=== PATIENT | male | born 1980 | race Caucasian/White ===

== ENCOUNTER 2017-12-27 03:30 | Emergency (ER) | payer SELFPAY ==
[2017-12-27] MEDS ORDERED: LIDOCAINE 1%-EPI 1:100000 20 ML MDV SUBQ STA (03:38)
[2017-12-27] MEDS ORDERED: BACITRACIN OINT TOP STA (04:04)
--- NOTE | 2017-12-27 04:06 | ED Physician Documentation ---
PD HPI HEAD INJURY - Stated complaint Stated Complaint: NOSE LACERATION - Chief complaint Chief Complaint: Laceration - History obtained from History obtained from: Patient - History of Present Illness Mechanism of head injury: Laceration Where head injury occurred: Home Timing - onset: How many hours ago (5) Location of injury: Front Quality of pain: Pain Associated symptoms: No: LOC, AMS, Neck pain Similar symptoms before: Has not had sx before Recently seen: Not recently seen - Additional information Additional information: Patient is a 37 year old male with no significant past medical history who is presenting to the emergency department for head laceration. patient was working in his shop when he hit his head causing a laceration. patient denied any loc, change in vision nausea or vomiting. patient states that he thought it might heal on its own but every time he raised his eyebrows the laceration would open up. Review of Systems Constitutional: reports: Reviewed and negative Eyes: denies: Loss of vision, Decreased vision Ears: denies: Drainage/discharge Nose: denies: Epistaxis Throat: reports: Reviewed and negative Cardiac: reports: Reviewed and negative Respiratory: reports: Reviewed and negative GI: denies: Nausea, Vomiting : reports: Reviewed and negative Skin: reports: Laceration (s) Musculoskeletal: denies: Neck pain, Back pain, Extremity pain Neurologic: reports: Head injury. denies: Generalized weakness, Syncope, Headache, LOC Immunocompromised: denies: Immunocompromised PD PAST MEDICAL HISTORY - Past Medical History Past Medical History: No Cardiovascular: None Respiratory: None Neuro: None Endocrine/Autoimmune: None GI: None : None HEENT: None Psych: None Musculoskeletal: None Derm: None - Past Surgical History Past Surgical History: No - Allergies Allergies/Adverse Reactions: Allergies Allergy/AdvReac Type Severity Reaction Status Date / Time No Known Drug Allergies Allergy Verified 12/27/17 03:39 - Social History Does the pt smoke?: No Smoking Status: Never smoker Does the pt drink ETOH?: Yes ETOH Use: Beer Does the pt have substance abuse?: No - Immunizations Immunizations are current?: Yes - POLST Patient has POLST: No PD ED PE NORMAL - Vitals Vital signs reviewed: Yes - General General: Alert and oriented X 3, No acute distress - HEENT HEENT: PERRL, Moist mucous membranes - Neck Neck: Supple, no meningeal sign - Cardiac Cardiac: RRR - Respiratory Respiratory: No respiratory distress - Abdomen Abdomen: Non distended - Neuro Neuro: Alert and oriented X 3, patient service representative 2-12 intact, No motor deficit, No sensory deficit, Normal speech Eye Opening: Spontaneous Motor: Obeys Commands Verbal: Oriented GCS Score: 15 PD ED PE EXPANDED - HEENT HEENT: Head injury (2cm stellate laceration) - Derm Derm: Laceration(s) Results - Vitals Vitals: Vital Signs - 24 hr 12/27/17 12/27/17 03:37 04:14 Temperature 36.6 C Heart Rate 90 87 Respiratory 17 14 Rate Blood Pressure 126/81 H 120/84 H O2 Saturation 97 95 Oxygen O2 Source Room air Procedures - Laceration (location) forehead Length in cm: 2 Wound type: Stellate Neurovascular status: Sensory intact, Vascular intact Wound Preparation: Chlorhexadine, Hibiclens Skin layer closure: Prolene, Size #-0 - enter number (6), Sutures - enter # (4) Other: Patient tolerated well, No complications, Neurovascular intact, Dressing applied, Tetanus UTD Complexity: Simple PD MEDICAL DECISION MAKING - ED course Complexity details: reviewed old records, reviewed results, re-evaluated patient , considered differential, d/w patient, d/w family ED course: Patient was seen and examined at bedside. Patient's wound was repaired as described above. patient stated that he did not want any anesthetic. Patient tolerated the sutures well and had no signs of cerebral injury. patient was stable for discharge with outpatient follow up. Departure - Departure Disposition: 01 Home, Self Care Clinical Impression: Laceration Condition: Good Instructions: ED Laceration Facial Sutr Tape Follow-Up: Juan Diego Whelan MD [Primary Care Provider] - Within 1 week Comments: keep your wound clean and dry. You should monitor for signs of infection. You can take motrin or tylenol as needed for pain. You should follow up with your doctor in 5 days for suture removal. You may return to the emergency department at any time for new, worsening or uncontrollable symptoms. Discharge Date/Time: 12/27/17 04:22
[2017-12-27 04:16] VITALS: BP 120/84
== END 2017-12-27 04:22 | disposition home or self-care (01) ==
LOC: ED 03:30
DX: S01.81XA Laceration without foreign body of other part of head, initial encounter (principal); W22.09XA Striking against other stationary object, initial encounter; Y92.019 Unspecified place in single-family (private) house as the place of occurrence of the external cause
CPT/HCPCS: 12001; 99282; 99283; A9270

== ENCOUNTER 2020-09-19 21:07 | Emergency (ER) | payer OTHER ==
--- NOTE | 2020-09-19 21:29 | ED Physician Documentation ---
History of Present Illness - Stated complaint Stated Complaint: LT ANKLE INJURY - Chief complaint Chief Complaint: Trauma Ext - Additonal information Additional information: 39-year-old male presents to the emergency department for evaluation of acute left ankle swelling and pain. He reports trying to move a air compressor onto his trailer and the air compressor slipped. Though it did not fall directly on the ankle it did cause a inversion injury of the ankle. He did complete his tasks at home and was able to bear partial weight but has fairly significant swelling therefore he presents for further evaluation. He has no history of previous ankle injury in the past. Review of Systems Constitutional: reports: Reviewed and negative Eyes: reports: Reviewed and negative Ears: reports: Reviewed and negative Nose: reports: Reviewed and negative Throat: reports: Reviewed and negative Cardiac: reports: Reviewed and negative Respiratory: reports: Reviewed and negative GI: reports: Reviewed and negative : reports: Reviewed and negative Skin: reports: Reviewed and negative Musculoskeletal: reports: Joint pain (left ankle), Joint swelling, Pain with weight bearing (left ankle) Neurologic: reports: Reviewed and negative PD PAST MEDICAL HISTORY - Past Medical History Past Medical History: Yes Cardiovascular: None Respiratory: None Endocrine/Autoimmune: None GI: None : None HEENT: None Psych: None Musculoskeletal: None Derm: None - Past Surgical History Past Surgical History: No - Present Medications Home Medications: Ambulatory Orders Medication Instructions Recorded Confirmed Ibuprofen [Motrin] 600 mg PO Q6H PRN #30 tab 09/19/20 - Allergies Allergies/Adverse Reactions: Allergies Allergy/AdvReac Type Severity Reaction Status Date / Time Sulfa (Sulfonamide AdvReac Unknown Verified 09/19/20 21:19 Antibiotics) - Social History Does the pt smoke?: No Smoking Status: Never smoker Does the pt drink ETOH?: Yes Does the pt have substance abuse?: No - Immunizations Immunizations are current?: Yes - POLST Patient has POLST: No PD ED PE EXPANDED - Extremities Extremities: Left ankle (Significant swelling and ecchymosis left medial malleolus. Also swelling and tenderness of the lateral mall normal flexion and extension of the ankle against pressure though painful. Intact Achilles. No pain at the base of the fifth metatarsal. 2+ DP pulse) Results - Vitals Vitals: Vital Signs - 24 hr 09/19/20 09/19/20 21:16 21:22 Temperature 36.5 C 36.5 C Heart Rate 83 83 Respiratory 18 18 Rate Blood Pressure 145/107 H 145/107 H O2 Saturation 98 98 Oxygen O2 Source Room air - Rads (name of study) left ankle Radiology: Final report received (No evidence of acute bony abnormality the left ankle. There are multiple calcified probable intra-articular bodies noted.) PD MEDICAL DECISION MAKING - ED course Complexity details: reviewed results, re-evaluated patient, considered differential, d/w patient, d/w family ED course: 39-year-old male presents to the emergency department for evaluation of acute left ankle pain and swelling when a an 80 pound air compressor slid off the tailgate causing an inversion injury of his ankle. He has both medial and lateral malleoli are swelling. Initially after the injury he was walking around bearing full weight but given the amount of swelling he decided to seek further evaluation. X-ray does not show any acute bony abnormalities. It does indicate multiple calcified probable intra-articular bodies that are seen. I discussed this finding with the patient and he states that last year he thinks he may have sprained or injured the ankle. This gentleman was given an Miah wrap and Aircast plus crutches. I recommend ibuprofen and icing. Though he is able to bear full weight given the amount of swelling I felt that nonweightbearing for a day or 2 would be indicated. Emergent return precautions discussed Departure - Departure Disposition: 01 Home, Self Care Clinical Impression: Moderate left ankle sprain Qualifiers: Encounter type: initial encounter Qualified Code(s): S93.402A - Sprain of unspecified ligament of left ankle, initial encounter Ankle contusion Qualifiers: Encounter type: initial encounter Laterality: left Qualified Code(s): S90.02XA - Contusion of left ankle, initial encounter Condition: Stable Record reviewed to determine appropriate education?: Yes Instructions: ED Sprain Ankle W X Ray, ED Contusion Foot Prescriptions: Ibuprofen [Motrin] 600 mg PO Q6H PRN #30 tab PRN Reason: Pain Comments: The x-ray of your ankle does not show any broken bones today. It is most likely that you have sprained and contused or bruised this ankle. Please use the Miah wrap when out of bed for the next week and use the crutches for the next day or 2 to help keep pressure and weight off the foot. I also recommend that you ice the ankle for 10 minutes 3 times a day. If pain and swelling is not markedly improved over the next 7 to 10 days repeating x-ray images is warranted. I have prescribed ibuprofen to help with pain. Please take with food it may cause some stomach upset
[2020-09-19] MEDS ORDERED: HYDROcod/ACETAM 5/325 MG TABLET PO STA (21:43)
[2020-09-19] MEDS ORDERED: IBUPROFEN 600 MG TABLET PO STA (21:43)
--- NOTE | 2020-09-19 21:50 | XRAY Report ---
PROCEDURE: Ankle 3 View LT INDICATIONS: r/o fx TECHNIQUE: 3 views of the ankle were acquired. COMPARISON: None FINDINGS: Bones: No fractures or dislocations. Ankle mortise is normally aligned. No suspicious bony lesions . Soft tissues: No tibiotalar joint effusion. Achilles tendon appears normal. Multiple probable calci fied intra-articular bodies. IMPRESSION: 1. No evidence acute bony abnormality of the left ankle. 2. There are multiple calcified probable intra-articular bodies noted. Reviewed by: Terrence Calvillo MD on 09/19/2020 9:49 PM PDT Approved by: Terrence Calvillo MD on 09/19/2020 9:49 PM PDT Station ID: [id number]
[2020-09-19 22:14] VITALS: BP 140/88
== END 2020-09-19 22:13 | disposition home or self-care (01) ==
LOC: ED 21:07
DX: S93.402A Sprain of unspecified ligament of left ankle, initial encounter (principal); W22.8XXA Striking against or struck by other objects, initial encounter; X50.0XXA Overexertion from strenuous movement or load, initial encounter
CPT/HCPCS: 73610; 99281; 99283; A9270

== ENCOUNTER 2020-09-26 15:46 | Outpatient (CLI) | payer OTHER ==
--- NOTE | 2020-09-26 16:54 | XRAY Report ---
PROCEDURE: Ankle 3 View LT INDICATIONS: SPRAIN OF LEFT ANKLE TECHNIQUE: 3 views of the ankle were acquired. COMPARISON: 09/19/2020. FINDINGS: Bones: No fractures or dislocations. Ankle mortise is normally aligned. Tibiotalar joint osteoarthr itis. Soft tissues: No tibiotalar joint effusion. Achilles tendon appears normal. Numerous ossifications project posterior to the tibiotalar joint and a single ossification is anterior tibiotalar joint may represent intra-articular ossified loose bodies. IMPRESSION: No acute fracture. No acute osseous lesion. If there is continued clinical concern for pathology, the n repeat plain film radiographs (7-10 days) or advanced imaging (CT, MR, bone scan) should be conside red for further evaluation. Reviewed by: Naida Ngo MD, PhD on 09/26/2020 4:52 PM PST Approved by: Naida Ngo MD, PhD on 09/26/2020 4:52 PM PST Station ID: [id number]
== END 2020-09-26 15:47 | disposition home or self-care (01) ==
LOC: DI.S 15:46
PROVIDERS: ATTEND Nurse Practitioner Family
DX: S93.402A Sprain of unspecified ligament of left ankle, initial encounter (principal)

== ENCOUNTER 2020-09-30 23:36 | Emergency (ER) | payer OTHER ==
[2020-10-01 00:21] LABS: BASOPHILS # (AUTO) 0.1 10^3/uL (0.0-0.1); BASOPHILS % (AUTO) 0.5 %; EOSINOPHILS # (AUTO) 0.3 10^3/uL (0.0-0.7); EOSINOPHILS % (AUTO) 3.1 %; HGB - HEMOGLOBIN 15.1 g/dL (14.0-18.0); LYMPHOCYTES % (AUTO) 31.2 %; MEAN CORPUSCULAR HEMOGLOBIN 32.8 pg (27.0-31.0); MEAN CORPUSCULAR HGB CONC 34.9 g/dL (32.0-36.0); MEAN CORPUSCULAR VOLUME 93.9 fL (80.0-94.0); MEAN PLATELET VOLUME 8.7 fL (7.4-11.4); MONOCYTES # (AUTO) 1.2 10^3/uL (0.0-1.0); MONOCYTES % (AUTO) 12.2 %; NEUTROPHILS # (AUTO) 4.9 10^3/uL (1.5-6.6); NEUTROPHILS % (AUTO) 51.9 %; PLT - PLATELET COUNT 349 10^3/uL (130-450); RED BLOOD COUNT 4.61 10^6/uL (4.70-6.10); RED CELL DISTRIBUTION WIDTH 12.1 % (12.0-15.0); WHITE BLOOD COUNT 9.5 x10^3/uL (4.8-10.8)
[2020-10-01 00:22] LABS: MUDS CUTOFF CONCENTRATIONS CUTOFF CONC BELOW:
[2020-10-01 00:33] LABS: BILIRUBIN,URINE NEGATIVE (NEGATIVE); GLUCOSE, URINE (UA) NEGATIVE (NEGATIVE); KETONES,URINE (UA) TRACE mg/dL (NEGATIVE); LEUKOCYTE ESTERASE, URINE NEGATIVE (NEGATIVE); NITRITE,URINE NEGATIVE (NEGATIVE); OCCULT BLOOD,URINE NEGATIVE (NEGATIVE); PROTEIN,URINE NEGATIVE (NEGATIVE); UROBILINOGEN,URINE 0.2 (NORMAL) E.U./dL (NORMAL)
[2020-10-01 00:33] LABS: ACETAMINOPHEN < 10 ug/mL (10-30); ALBUMIN 4.3 g/dL (3.2-5.5); ALBUMIN/GLOBULIN RATIO 1.2 (1.0-2.2); ALKALINE PHOSPHATASE 84 IU/L (42-121); ALT ALANINE AMINOTRANSFERASE 62 IU/L (10-60); AST ASPARTATE AMINOTRANSFERASE 32 IU/L (10-42); BILIRUBIN,TOTAL 0.8 mg/dL (0.2-1.0); BUN - BLOOD UREA NITROGEN 16 mg/dL (6-20); CALCIUM 8.9 mg/dL (8.5-10.3); CARBON DIOXIDE - CO2 20 mmol/L (21-32); CHLORIDE 103 mmol/L (101-111); CREATININE 1.3 mg/dL (0.6-1.2); GLUCOSE 114 mg/dL (70-100); LIPASE 31 U/L (22-51); SALICYLATE < 6.0 mg/dL; SODIUM 137 mmol/L (135-145); TOTAL PROTEIN 7.9 g/dL (6.7-8.2)
[2020-10-01 00:41] LABS: CLARITY,URINE CLEAR (CLEAR)
[2020-10-01 00:43] LABS: AMPHETAMINE SCREEN,URINE NEGATIVE (NEGATIVE); BENZODIAZEPINES SCREEN, URINE NEGATIVE (NEGATIVE); COCAINE SCREEN URINE NEGATIVE (NEGATIVE); METHADONE SCREEN, URINE NEGATIVE (NEGATIVE); METHAMPHETAMINES SCREEN, URINE NEGATIVE (NEGATIVE); OPIATE SCREEN, URINE NEGATIVE (NEGATIVE); OXYCODONE SCREEN, URINE NEGATIVE (NEGATIVE); PROPOXYPHENE SCREEN, URINE NEGATIVE (NEGATIVE); TRICYCLIC ANTIDEPRESSANT,URINE NEGATIVE (NEGATIVE)
[2020-10-01] MEDS ORDERED: IBUPROFEN 600 MG TABLET PO STA ×3 (02:19→19:15)
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
[2020-10-01] MEDS ORDERED: NICOTINE 21 MG PATCH TOP STA (17:22)
--- NOTE | 2020-10-01 18:46 | ED Physician Documentation ---
ED Addendum - Addendum Addendum: 10/01/20 18:45 Patient accepted to [facility]. Will be transferred for psychiatric and substance abuse. COBRA forms completed by Dr. Mckeon. Departure - Departure Disposition: 65 Psych Hosp/Unit DC/Xfer Clinical Impression: Suicidal ideation Alcoholic intoxication Qualifiers: Complication of substance-induced condition: uncomplicated Qualified Code(s): F10.920 - Alcohol use, unspecified with intoxication, uncomplicated Condition: Stable
[2020-10-01 20:01] VITALS: BP 142/103
== END 2020-10-01 19:58 ==
LOC: EDUNIT# → ED 23:36
DX: F32.9 Major depressive disorder, single episode, unspecified (principal); R45.851 Suicidal ideations; F10.229 Alcohol dependence with intoxication, unspecified; I51.7 Cardiomegaly; Z20.828 Contact with and (suspected) exposure to other viral communicable diseases
CPT/HCPCS: 36415; 80306; 80320; 80329; 81003; 83690; 87635; 93005; 99283; 99285; A9270; 80053; 80307; 81001; 84443; 85025; 87086

== ENCOUNTER 2024-08-09 02:53 | Emergency (ER) | payer OTHER ==
[2024-08-09 03:06] VITALS: BP 160/104; O2SAT 98
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
== END 2024-08-09 03:10 | disposition home or self-care (01) ==
LOC: ED 02:53
DX: S01.112A Laceration without foreign body of left eyelid and periocular area, initial encounter (principal); W22.8XXA Striking against or struck by other objects, initial encounter; Y92.148 Other place in prison as the place of occurrence of the external cause; I10 Essential (primary) hypertension
CPT/HCPCS: 99281; 99283